=== PATIENT | male | born 1965 | race Hispanic/Latino ===

== ENCOUNTER 2017-05-22 06:19 | Emergency (ER) | payer BC ==
[2017-05-22] MEDS ORDERED: Ondansetron HCl/PF 4 MG/2 ML Vial ONE (06:51)
[2017-05-22 07:10] LABS: #Eosinphils 0.2 thou/uL (0.0-0.7); #Lymphocytes 1.7 thou/uL (1.20-3.40); #Monocytes 1.1 thou/uL (0.11-0.59); #Neutrophils 9.1 thou/uL (1.40-6.50); %Basophils 0.2 % (0.0-1.0); %Eosinophils 1.5 % (0.0-10.0); %Lymphocytes 14.3 % (21.0-51.0); %Monocytes 9.3 % (0.0-10.0); %Neutrophils 74.7 % (42.0-75.0); Hemoglobin 14.1 g/dL (14.0-18.0); Mean Corpuscular HGB CONC 32.7 g/dL (32.0-36.0); Mean Corpuscular Hemoglobin 28.7 pg (27.0-31.0); Mean Corpuscular Volume 87.8 fl (80.0-94.0); Mean Platelet Volume 8.6 fL (7.4-10.4); Platelet Count 169 thou/uL (130-400); RBC Distribution Width 12.3 % (11.5-14.5); Red Blood Cell (RBC) Count 4.92 mill/uL (4.70-6.10); White Blood Cell (WBC) Count 12.2 thou/uL (4.8-10.8)
[2017-05-22 07:30] LABS: ALT (SGPT) 18 U/L (8-55); AST (SGOT) 17 U/L (5-34); Alkaline Phosphatase 70 U/L (40-150); Anion Gap 12 mmol/L (10-20); BUN (Urea Nitrogen) 15 mg/dL (8.9-20.6); Bilirubin, Total 0.7 mg/dL (0.2-1.2); Calc. Creatinine Clearance 0 mL/min (70-130); Calcium 10.3 mg/dL (7.8-10.44); Carbon Dioxide 24 mmol/L (22-29); Chloride 102 mmol/L (98-107); Estimated GFR-MDRD Greater than 90; Globulin 3.2 g/dL (2.4-3.5); Glucose 114 mg/dL (70-105); Lipase 23 U/L (8-78); Protein, Total 7.2 g/dL (6.0-8.3); Sodium 134 mmol/L (136-145)
--- NOTE | 2017-05-22 08:29 | CT ---
PRELIMINARY REPORT/[facility]/EMERGENCY AFTER HOURS PROCEDURE: EXAM: CT Abdomen and Pelvis With Intravenous Contrast CLINICAL HISTORY: 51 years old, male; Signs and symptoms; Bloating; Additional info: 51 yo m presents to ed C/O abdomin al pain onset 20: 00 yesterday evening. Pt states pain starts on l side of abdomen and radiates to ce nter of abdomen. Denies this happening in the past. Pt states pain worse with movement and pushing on area. Also reports feeling bloated. Denies urinary complaints. Reports diarrhea yesterday. Also reports some back pain. Denies fever. No surgical HX. TECHNIQUE: Axial computed tomography images of the abdomen and pelvis with intravenous contrast. Coronal reformatted images were created and reviewed. CONTRAST: 100 mL of ISOVUE administered intravenously. COMPARISON: No relevant prior studies available. FINDINGS: Lower thorax: No acute findings. ABDOMEN: Liver: Hepatomegaly and diffuse fatty infiltration No mass. Gallbladder and bile ducts: Unremarkable. No calcified stones. No ductal dilation. Pancreas: Unremarkable. No mass. No ductal dilation. Spleen: Unremarkable. No splenomegaly. Adrenals: Unremarkable. No mass. Kidneys and ureters: Unremarkable. No solid mass. No hydronephrosis. Stomach and bowel: Colonic diverticulosis but observed with superimposed mural thickening and surroun ding inflammation in the mid to distal descending colon. Appendix: No findings to suggest acute appendicitis. PELVIS: Bladder: Unremarkable. No mass. Reproductive: Unremarkable as visualized. ABDOMEN and PELVIS: Intraperitoneal space: Minimal pelvic fluid No free air. No significant fluid collection. Bones/joints: No acute fracture. No dislocation. Soft tissues: Unremarkable. Vasculature: Unremarkable. No abdominal aortic aneurysm. Lymph nodes: Unremarkable. No enlarged lymph nodes. IMPRESSION: Descending colonic diverticulitis versus short segment colitis. Minimal fluid. No gross perforation o r abscess Thank you for allowing us to participate in the care of your patient. Dictated and Authenticated by: Rao Adamson MD 05/22/2017 7:14 AM Central Time ([place] & [place]) FINAL REPORT CT ABDOMEN AND PELVIS WITH CONTRAST: Multiple axial tomograms obtained through the abdomen and pelvis with IV enhancement. HISTORY: Left lower quadrant abdominal pain. FINDINGS: Lung [place] are clear. Liver, spleen, and pancreas are unremarkable. Adrenal glands and kidneys unremarkable. The small bowel loops appear normal. Evaluation of the colon reveals left colon diverticulosis. There is inflammatory change surrounding the mid left colon consisting of haziness and stranding surrounding the diverticula at this location. These findings are consistent with diverticulitis. There is no evidence of extraluminal abscess or fluid collection. No extraluminal gas. Aorta is normal caliber. No adenopathy identified. IMPRESSION: Evidence of diverticulitis in the mid to lower left colon. There is mural thickening and luminal corbin rowing at this location. A followup endoscopy is recommended after treatment. Rule out mucosal abno rmality. POS: MARJORIE
--- NOTE | 2017-05-22 09:19 | ULT ---
ULTRASOUND ABDOMEN LIMITED: (RIGHT UPPER QUADRANT) DATE: 05/22/17. HISTORY: A 51-year-old male with left upper quadrant and left flank pain. FINDINGS: The gallbladder has normal wall thickness and has no evidence of gallstones or sludge. The hepatic e chogenicity is diffusely increased, consistent with fatty liver. The right kidney has normal echogen icity and has no hydronephrosis. The pancreas is visualized, although ultrasound is relatively insen sitive for pancreatic pathology compared to CT and MRI. There is no biliary dilation. The common du ct caliber is 4 mm. Please note that this is a right upper quadrant ultrasound, whereas the patient' s pain is reportedly on the left. IMPRESSION: 1) Hepatic steatosis. 2) Otherwise negative. jn [] POS: BERNIE
[2017-05-22] MEDS ORDERED: ISOVUE-370 76%-LOCM 1 ML ONE (16:01)
== END 2017-05-22 09:35 | disposition home or self-care (01) ==
LOC: ERS 06:19
DX: K57.92 Diverticulitis of intestine, part unspecified, without perforation or abscess without bleeding (principal); E11.9 Type 2 diabetes mellitus without complications; E78.5 Hyperlipidemia, unspecified; I10 Essential (primary) hypertension; Z79.84 Long term (current) use of oral hypoglycemic drugs; Z79.899 Other long term (current) drug therapy
CPT/HCPCS: 74177; 76705; 80053; 83690; 85025; 96361; 96374; 96375; J2270; J2405

== ENCOUNTER 2017-11-15 20:30 | Outpatient (CLI) | payer BC | END 2017-11-15 20:31 | disposition home or self-care (01) | LOC: SLEEPLAB 20:30 | PROVIDERS: ATTEND Family Medicine | DX: G47.33 Obstructive sleep apnea (adult) (pediatric) (principal); R53.83 Other fatigue; R06.83 Snoring; G47.10 Hypersomnia, unspecified; G47.00 Insomnia, unspecified; I10 Essential (primary) hypertension; Z68.38 Body mass index [BMI] 38.0-38.9, adult | CPT/HCPCS: 95811 ==